=== PATIENT | female | born 1955 | race Caucasian/White ===

== ENCOUNTER → 2016-03-31 | Outpatient (CLI) | payer BC ==
--- NOTE | 2016-04-01 06:48 | MM ---
Reason for exam: screening (asymptomatic). Last mammogram was performed 1 year ago. History: Patient is postmenopausal. Taking estrogen for 13 years beginning at age 48. Taking progesterone for 13 years beginning at age 48. Physical Findings: A clinical breast exam by your physician is recommended on an annual basis and results should be correlated with mammographic findings. MG 3D Screening Mammo W/Cad Bilateral CC and MLO view(s) were taken. Prior study comparison: March 19, 2015, bilateral MG 3d screening mammo w/cad. February 10, 2014, bilateral MG diagnostic mammo w CAD TARAN. November 18, 2011, CAD bilateral diagnostic mammogram. The breast tissue is heterogeneously dense. This may lower the sensitivity of mammography. Possible architectural distortion superior left breast at a middle depth on tomosynthesis images. ASSESSMENT: Incomplete: need additional imaging evaluation, BI-RAD 0 RECOMMENDATION: Special view mammogram of the left breast. If lesion persists on supplemental views, image directed ultrasound is recommended. [facility] will attempt to contact patient to return for supplemental views and ultrasound if indicated.
== END | disposition home or self-care (01) ==
LOC: RADMAMWWP 15:22
PROVIDERS: ATTEND Obstetrics & Gynecology
DX: Z12.31 Encounter for screening mammogram for malignant neoplasm of breast (principal)
CPT/HCPCS: 77063; G0202

== ENCOUNTER → 2016-04-08 | Outpatient (CLI) | payer BC ==
--- NOTE | 2016-04-09 11:32 | MM ---
Reason for exam: additional evaluation requested from abnormal screening. Last mammogram was performed less than 1 month ago. History: Patient is postmenopausal. Taking estrogen for 13 years beginning at age 48. Taking progesterone for 13 years beginning at age 48. Physical Findings: Nurse did not find any significant physical abnormalities on exam. MG 3D Work Up W/Cad LT CC and MLO view(s) were taken of the left breast. Prior study comparison: March 31, 2016, bilateral MG 3d screening mammo w/cad. March 29, 2015, right breast US breast workup limited RT. March 19, 2015, bilateral MG 3d screening mammo w/cad. The breast tissue is heterogeneously dense. This may lower the sensitivity of mammography. An area of architectural distortion persists at a middle depth 2-3 o'clock seen on spot MLO and true lateral view. These results were verbally communicated with the patient and result sheet given to the patient on 04/08/16. ASSESSMENT: Incomplete: need additional imaging evaluation, BI-RAD 0 RECOMMENDATION: Ultrasound of the left breast.
--- NOTE | 2016-04-09 11:38 | USB ---
Reason for exam: additional evaluation requested from abnormal screening. History: Patient is postmenopausal. Taking estrogen for 13 years beginning at age 48. Taking progesterone for 13 years beginning at age 48. US Breast Workup LT Left breast ultrasound demonstrates a 0.79 x 0.77 x 0.87cm solid lesion at 2 o'clock and a 0.50 x 0.48 x 0.63cm solid lesion at 2 o'clock, these are hypoechoic, irregular and suspicious, ductal ectasia at the nipple, a 0.25 x 0.23 x 0.34cm cystic lesion at 2:30, a 0.37 x 0.38 x 0.18cm lesion too small to characterize at 5 o'clock, likely cyst and a 0.31 x 0.20 x 0.2cm lesion too small to characterize at 8 o'clock. These results were verbally communicated with the patient and result sheet given to the patient on 04/08/16. ASSESSMENT: Suspicious, BI-RAD 4 RECOMMENDATION: Surgical consultation and ultrasound core biopsy of the left breast. Called Dr. De La Cruz with mammographic findings and has scheduled an appointment for the patient for 04/29/16 at 8:[address] Trinidad. Biopsy scheduled for 04/21/16 at 12:20. PRELIMINARY REPORT CALLED AND FAXED TO DR. TRINIDAD ON 04/09/16 AT 300/TP.
== END | disposition home or self-care (01) ==
LOC: RADMAMWWP 15:28
PROVIDERS: ATTEND Obstetrics & Gynecology
DX: R92.8 Other abnormal and inconclusive findings on diagnostic imaging of breast (principal); R92.2 Inconclusive mammogram
CPT/HCPCS: 76641; G0206; G0279

== ENCOUNTER → 2016-04-15 | Day surgery (SDC) | payer BC ==
[~2016-04-15] MED LIST: ALPRAZolam 0.25 MG TAB ONE; BACITRACIN OINT 1 EACH PACKET TOPICAL ONE; LIDOCAINE 1% INJ 10MG/ML (20 ML MDV) ONE; LIDOCAINE 1%-EPI 1:100,000 20 ML VIAL ONE; SODIUM BICARB 4% 5 ML VIAL (0.48 MEQ/ML) ONE
--- NOTE | 2016-04-15 14:01 | USB ---
EXAMINATION TYPE: US biopsy breast VAD LT, MG diagnostic mammo LT wo CAD DATE OF EXAM: 04/15/2016 1:41 PM CLINICAL HISTORY: R92.8 ABN MAMMO. Abnormal mammogram and ultrasound TECHNIQUE: Ultrasound guided core biopsy of left breast. COMPARISON: Prior left breast mammogram and ultrasound April 08, 2016 and older studies. FINDINGS: The procedure of ultrasound guided core biopsy was explained to the patient. Benefits, alternatives, and risks were discussed. An informed consent was then obtained. The patient was placed in supine positioning for imaging and for the procedure. Preprocedure imaging showed more vague heterogeneous hypoechoic area 2:00 position left breast versus more regular slightly shadowing lesion seen prior. The overlying skin was prepped and draped in usual sterile fashion. Lidocaine buffered with bicarbonate was used as anesthetic into the skin. Lidocaine with epinephrine is used as anesthetic into the deeper tissue up to area of concern in the left breast. Under ultrasound guidance, a 12-gauge vacuum assisted biopsy gun device was used to obtain 4 core samples. Last 2 were fragmented. Following this, a biopsy clip was left in lesion. The patient tolerated the procedure well without any immediate complication. The patient was kept in the radiology department for short stay after the procedure and then discharged home in stable condition. Postprocedure mammogram shows successful deployment of clip upper outer aspect near area of mammogram concern. IMPRESSION: Successful, uncomplicated ultrasound guided core biopsy of area of concern in the left breast, full pathology results to follow. Intermediate index of suspicion noted at time of procedure. Pathology Results: Malignant BREAST, LEFT, ULTRASOUND GUIDED CORE BIOPSY: INVASIVE CARCINOMA PENDING IMMUNOHISTOCHEMICAL STAINS. 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 Recommendation Surgical consult of the left breast. NAED
== END ==
LOC: RADUSWWP 11:54
PROVIDERS: ATTEND Surgery
DX: D05.12 Intraductal carcinoma in situ of left breast (principal); R92.8 Other abnormal and inconclusive findings on diagnostic imaging of breast; Z88.0 Allergy status to penicillin
CPT/HCPCS: 88305; 88342; 88341; 19083; G0206; A4648; J2001

== ENCOUNTER → 2016-05-13 | Outpatient (CLI) | payer BC ==
--- NOTE | 2016-05-13 08:54 | CT ---
EXAMINATION TYPE: CT ChestAbdPelvis w con DATE OF EXAM: 05/13/2016 7:59 AM COMPARISON: NONE HISTORY: 61 year-old female breast cancer with mets TECHNIQUE: Contiguous axial scanning of the chest, abdomen, and pelvis performed with IV Contrast, pa tient injected with 100 mL of Omnipaque 300. Delayed images through the kidneys were obtained. [place] l/sagittal reconstructions performed. CT DLP: 1491 mGycm Automated exposure control for dose reduction was used. FINDINGS: CHEST: The heart is normal size without pericardial effusion. Aorta is normal caliber with conventional arch vessel branching anatomy. Scattered calcified nonenlarged mediastinal and left hilar lymph nodes are present, compatible with p rior granulomatous disease. Mild subpleural interstitial scarring is present along the posterior upper lobes. No consolidation or pleural effusion.. There are postoperative changes involving the left breast with a large postoperative fluid collection measuring 6.7 cm in the upper outer quadrant with adjacent surgical clips. Some nondependent air is present within the fluid collection. Additional 3.7 cm postoperative fluid collection in the left axi lla with adjacent surgical clip. Asymmetric skin thickening of the left breast. ABDOMEN: No focal liver lesion or biliary ductal dilatation. Portal venous system is patent. Gallbladder, adrenal glands, kidneys, spleen, and pancreas appear within normal limits. No dilated small bowel, free fluid, or free air. Normal appendix. Oral contrast has progressed to the lower descending colon. There is mild stool with out pericolonic inflammatory change. No mesenteric or retroperitoneal lymphadenopathy. PELVIS: Bladder is urine distended. Uterus and ovaries are visualized. No abnormal fluid collection in the pe lvis or pelvic lymphadenopathy seen. BONES: Mild degenerative changes at the right hip no osseous destructive process seen. Mild degenerative dis c disease midthoracic spine. IMPRESSION: 1. POSTOPERATIVE/POSTTREATMENT CHANGES INVOLVING THE LEFT BREAST WITH A 6.7 CM UPPER OUTER QUADRANT F LUID COLLECTION LIKELY POSTOPERATIVE SEROMA. THERE IS SOME AIR WITHIN THE FLUID COLLECTION PROBABLY R EFLECTING RELATIVELY RECENT SURGERY. 2. ADDITIONAL 3.7 CM PROBABLE POSTOPERATIVE SEROMA IN THE LEFT AXILLA RELATING TO AXILLARY NODE DISSE CTION. 3. NO SPECIFIC FINDINGS OF METASTATIC DISEASE TO THE CHEST, ABDOMEN, OR PELVIS.
--- NOTE | 2016-05-13 14:04 | NM ---
EXAMINATION TYPE: NM bone scan whole body DATE OF EXAM: 05/13/2016 1:50 PM COMPARISON: CT scan 05/13/2016 HISTORY: Breast cancer Delayed whole-body scanning was performed following the injection of 27 mCi Tc 99m MDP. Images acqui red 5.5 hours post injection. Bilateral oblique views of the thorax and lumbar spine also submitted. FINDINGS: Abnormal uptake involving the shoulders likely post arthritic. There is abnormal uptake involving the cervical spine on the right which is nonspecific. Abnormal uptake involving the right sternum and sternoclavicular joint demonstrates no corresponding CT abnormality and is nonspecific. Abnormal uptake involving the feet likely degenerative or arthritic. Faint abnormal uptake at L4-5 likely degenerative. IMPRESSION: 1. Abnormal uptake involving the sternum and sternoclavicular joint demonstrates no corresponding abn ormality by CAT scan. Finding nonspecific. No definite destructive change. 2. Nonspecific uptake involving the mid right cervical spine could be correlated with x-ray.
== END | disposition home or self-care (01) ==
LOC: RADCTMAIN 07:19
PROVIDERS: ATTEND Surgery
DX: Z08 Encounter for follow-up examination after completed treatment for malignant neoplasm (principal); Z85.3 Personal history of malignant neoplasm of breast; Z98.890 Other specified postprocedural states
CPT/HCPCS: 71260; 74177; 78306; A9503; Q9967

== ENCOUNTER → 2016-05-23 | Outpatient (CLI) | payer BC ==
--- NOTE | 2016-05-24 09:15 | ECHOF ---
Referral Reason:C50.412 Breast CA,Z01.818 Pre-Chemo MEASUREMENTS -------- HEIGHT: 162.6 cm WEIGHT: 59.0 kg BP: 126/67 RVIDd: 2.7 cm (< 3.3) IVSd: 0.7 cm (0.6 - 1.1) LVIDd: 3.7 cm (3.9 - 5.3) LVPWd: 0.8 cm (0.6 - 1.1) IVSs: 1.2 cm LVIDs: 2.4 cm LVPWs: 1.4 cm LA Diam: 2.6 cm (2.7 - 3.8) LAESV Index (A-L): 11.90 ml/m Ao Diam: 2.8 cm (2.0 - 3.7) AV Cusp: 1.9 cm (1.5 - 2.6) MV EXCURSION: 13.796 mm (> 18.000) MV EF SLOPE: 24 mm/s (70 - 150) EPSS: 0.5 cm MV E Koffi: 0.76 m/s MV DecT: 293 ms MV A Okffi: 0.71 m/s MV E/A Ratio: 1.07 AR PHT: 2213 ms RAP: 5.00 mmHg RVSP: 22.84 mmHg FINDINGS -------- Sinus rhythm. This was a technically adequate study. The left ventricular size is normal. Left ventricular wall thickness is normal. Overall left ventricular systolic function is normal with, an EF between 55 - 60 %. The right ventricle is normal in size and function. Normal LA size by volume 22+/-6 ml/m2. The right atrium is normal in size. There is mild aortic valve sclerosis. There is mild aortic regurgitation. Mild mitral annular calcification present. The tricuspid valve appears structurally normal. Pulmonic valve appears structurally normal. The aortic root size is normal. Normal inferior vena cava with normal inspiratory collapse consistent with estimated right atrial pressure of 5 mmHg. The pericardium is normal. CONCLUSIONS -------- 1. Sinus rhythm. 2. There is mild aortic regurgitation. 3. Mild mitral annular calcification present. 4. The tricuspid valve appears structurally normal. 5. Pulmonic valve appears structurally normal. 6. The aortic root size is normal. 7. Normal inferior vena cava with normal inspiratory collapse consistent with estimated right atrial pressure of 5 mmHg. 8. The pericardium is normal. 9. This was a technically adequate study. 10. The left ventricular size is normal. 11. Left ventricular wall thickness is normal. 12. Overall left ventricular systolic function is normal with, an EF between 55 - 60 %. 13. The right ventricle is normal in size and function. 14. Normal LA size by volume 22+/-6 ml/m2. 15. The right atrium is normal in size. 16. There is mild aortic valve sclerosis. WOOL SHEARER: Elsie Rossi RDCS
== END | disposition home or self-care (01) ==
LOC: RADECHMAIN 13:58
PROVIDERS: ATTEND Internal Medicine Hematology & Oncology
DX: Z01.818 Encounter for other preprocedural examination (principal); C50.412 Malignant neoplasm of upper-outer quadrant of left female breast
CPT/HCPCS: 93306

== ENCOUNTER 2016-07-21 09:20 | Inpatient (IN) | payer BC ==
--- NOTE | 2016-07-21 09:41 | ED ---
General Adult HPI - General Chief complaint: Fever Stated complaint: Fever Time Seen by Provider: 07/21/16 09:31 Source: patient, RN notes reviewed Mode of arrival: wheelchair Limitations: no limitations - History of Present Illness Initial comments: Patient is a 61-year-old female presenting to the emergency Department with weakness. Onset of symptoms was Thursday. Symptoms worsened last night. Patient had temperature of 101 last night. Patient is on chemotherapy for stage III breast cancer. Last chemotherapy dose was 1 week ago. Patient did go to infusion center today however Dr. Kelsey had concerns for possible sepsis and recommended she come to the emergency department. Patient does admit to having a sore throat however states it is somewhat improved. Patient did receive some fluids prior to arrival. - Related Data Home Medications Medication Instructions Recorded Confirmed Dexamethasone [Dexamethasone] 4 - 8 mg PO DIRECTED 07/21/16 07/21/16 Escitalopram [Lexapro] 10 mg PO DAILY 07/21/16 07/21/16 Lidocaine/Prilocaine 1 applic TOPICAL DIRECTED 07/21/16 07/21/16 [Lidocaine-Prilocaine Cream] Allergies Allergy/AdvReac Type Severity Reaction Status Date / Time Penicillins Allergy Rash/Hives Verified 07/21/16 10:30 Review of Systems ROS Statement: Those systems with pertinent positive or pertinent negative responses have been documented in the HPI. ROS Other: All systems not noted in ROS Statement are negative. Constitutional: Reports: fever Eyes: Denies: eye pain ENT: Reports: throat pain. Denies: ear pain Respiratory: Denies: dyspnea Cardiovascular: Denies: chest pain Endocrine: Reports: fatigue Gastrointestinal: Reports: abdominal pain (Chronic since starting chemotherapy) , nausea Genitourinary: Denies: urgency Musculoskeletal: Denies: back pain Skin: Denies: rash Neurological: Denies: headache Past Medical History Past Medical History: Cancer Additional Past Medical History / Comment(s): breast cancer History of Any Multi-Drug Resistant Organisms: None Reported Past Surgical History: Section, Orthopedic Surgery Additional Past Surgical History / Comment(s): lumpectomy left breast, lymph node removal Past Psychological History: No Psychological Hx Reported Smoking Status: Never smoker Past Alcohol Use History: None Reported Past Drug Use History: None Reported General Exam Limitations: no limitations General appearance: alert, in no apparent distress Head exam: Present: atraumatic Eye exam: Present: normal appearance, PERRL ENT exam: Present: normal oropharynx Neck exam: Present: normal inspection. Absent: tenderness, meningismus Respiratory exam: Present: normal lung sounds bilaterally Cardiovascular Exam: Present: regular rate, normal rhythm GI/Abdominal exam: Present: soft. Absent: distended, tenderness, guarding, rebound, rigid Extremities exam: Present: normal inspection. Absent: pedal edema, calf tenderness Back exam: Present: normal inspection Neurological exam: Present: alert Psychiatric exam: Present: normal affect, normal mood Skin exam: Present: normal color Course Vital Signs 07/21/16 07/21/16 07/21/16 09:22 09:53 10:57 Temperature 98.4 F 100.5 F H Pulse Rate 74 72 67 Respiratory 20 18 18 Rate Blood Pressure 85/52 89/51 104/57 O2 Sat by Pulse 99 98 100 Oximetry 07/21/16 12:12 Temperature 99.3 F Pulse Rate 68 Respiratory 20 Rate Blood Pressure 97/56 O2 Sat by Pulse 98 Oximetry - Reevaluation(s) Reevaluation #1: 07/21/16 09:59 Patient did take Tylenol earlier. EKG Findings - EKG Comments: EKG Findings:: Normal sinus rhythm 76. IN 114. QRS 78. QT 382. QTC 429. Normal axis. Normal QRS. Normal ST-T. Medical Decision Making - Medical Decision Making Patient reevaluated and does feel much better. Patient updated on results and plan. Case again discussed with Dr. Kelsey who would like patient admitted with cefepime and vancomycin. Case also discussed with Dr. Mendoza, who will admit for Dr. Waldron. She does request consult for Dr. Locke. Dr. Owens was also notified. Patient states she believes she received Neulasta on Thursday. - Lab Data Result diagrams: 07/21/16 09:44 07/21/16 09:44 Lab Results 07/21/16 07/21/16 07/21/16 Range/Units 09:44 09:44 09:44 WBC 0.4 L* (3.8-10.6) k/uL RBC 3.38 L (3.80-5.40) m/uL Hgb 10.4 L (11.4-16.0) gm/dL Hct 30.4 L (34.0-46.0) % MCV 89.7 (80.0-100.0) fL MCH 30.8 (25.0-35.0) pg MCHC 34.3 (31.0-37.0) g/dL RDW 15.2 (11.5-15.5) % Plt Count 69 L (150-450) k/uL Differential Comment P Poikilocytosis (manual Present Anisocytosis (manual) Present PT (9.0-12.0) sec INR (<1.1) APTT (22.0-30.0) sec Sodium 134 L (137-145) mmol/L Potassium 4.0 (3.5-5.1) mmol/L Chloride 104 (98-107) mmol/L Carbon Dioxide 22 (22-30) mmol/L Anion Gap 8 mmol/L BUN 14 (7-17) mg/dL Creatinine 0.66 (0.52-1.04) mg/dL Est GFR (MDRD) Af Amer >60 (>60 ml/min/1.73 sqM) Est GFR (MDRD) Non-Af >60 (>60 ml/min/1.73 sqM) Glucose 164 H (74-99) mg/dL Plasma Lactic Acid Hiram 1.5 (0.7-2.0) mmol/L Calcium 8.3 L (8.4-10.2) mg/dL Total Bilirubin 0.7 (0.2-1.3) mg/dL AST 12 L (14-36) U/L ALT 19 (9-52) U/L Alkaline Phosphatase 64 (38-126) U/L Total Protein 5.7 L (6.3-8.2) g/dL Albumin 3.1 L (3.5-5.0) g/dL Urine Color Urine Appearance (Clear) Urine pH (5.0-8.0) Ur Specific Jerome (1.001-1.035) Urine Protein (Negative) Urine Glucose (UA) (Negative) Urine Ketones (Negative) Urine Blood (Negative) Urine Nitrite (Negative) Urine Bilirubin (Negative) Urine Urobilinogen (<2.0) mg/dL Ur Leukocyte Esterase (Negative) Group A Strep Rapid (Negative) 07/21/16 07/21/16 07/21/16 Range/Units 09:44 09:55 11:02 WBC (3.8-10.6) k/uL RBC (3.80-5.40) m/uL Hgb (11.4-16.0) gm/dL Hct (34.0-46.0) % MCV (80.0-100.0) fL MCH (25.0-35.0) pg MCHC (31.0-37.0) g/dL RDW (11.5-15.5) % Plt Count (150-450) k/uL Differential Comment Poikilocytosis (manual Anisocytosis (manual) PT 10.7 (9.0-12.0) sec INR 1.1 (<1.1) APTT 22.2 (22.0-30.0) sec Sodium (137-145) mmol/L Potassium (3.5-5.1) mmol/L Chloride (98-107) mmol/L Carbon Dioxide (22-30) mmol/L Anion Gap mmol/L BUN (7-17) mg/dL Creatinine (0.52-1.04) mg/dL Est GFR (MDRD) Af Amer (>60 ml/min/1.73 sqM) Est GFR (MDRD) Non-Af (>60 ml/min/1.73 sqM) Glucose (74-99) mg/dL Plasma Lactic Acid Hiram (0.7-2.0) mmol/L Calcium (8.4-10.2) mg/dL Total Bilirubin (0.2-1.3) mg/dL AST (14-36) U/L ALT (9-52) U/L Alkaline Phosphatase (38-126) U/L Total Protein (6.3-8.2) g/dL Albumin (3.5-5.0) g/dL Urine Color Yellow Urine Appearance Clear (Clear) Urine pH 7.5 (5.0-8.0) Ur Specific Jerome 1.016 (1.001-1.035) Urine Protein Trace H (Negative) Urine Glucose (UA) Negative (Negative) Urine Ketones Negative (Negative) Urine Blood Negative (Negative) Urine Nitrite Negative (Negative) Urine Bilirubin Negative (Negative) Urine Urobilinogen 2.0 (<2.0) mg/dL Ur Leukocyte Esterase Negative (Negative) Group A Strep Rapid Negative (Negative) - Radiology Data Radiology results: image reviewed (Chest x-ray shows no acute process) Disposition Clinical Impression: Febrile neutropenia Disposition: ADMITTED IP TO THIS HOSP Referrals: Chet Waldron MD [Primary Care Provider] - 1-2 days Decision Time: 13:03
[2016-07-21] MEDS: SODIUM CHLORIDE 0.9% 500 ML IV SCH (09:52)
[2016-07-21] MEDS ORDERED: IBUPROFEN 400 MG TAB PO STA (09:57)
[2016-07-21 10:03] LABS: Aty Lym Flag Moderate; CH 30.7; CHCM 34.4; HCT 30.4 % (34.0-46.0); HDW 2.21; HGB 10.4 gm/dL (11.4-16.0); MCH 30.8 pg (25.0-35.0); MCHC 34.3 g/dL (31.0-37.0); MCV 89.7 fL (80.0-100.0); Mean Platelet Volume 7.6; RBC 3.38 m/uL (3.80-5.40); RDW 15.2 % (11.5-15.5); WBC (Perox) 0.41
[2016-07-21 10:06] LABS: Partial Thromboplastin Time 22.2 sec (22.0-30.0)
[2016-07-21 10:10] LABS: INR 1.1 (<1.1); Prothrombin Time 10.7 sec (9.0-12.0); WBC 0.4 k/uL (3.8-10.6)
[2016-07-21 10:14] LABS: ALT 19 U/L (9-52); AST 12 U/L (14-36); Alkaline Phosphatase 64 U/L (38-126); Anion Gap 8 mmol/L; Blood Urea Nitrogen 14 mg/dL (7-17); Calcium 8.3 mg/dL (8.4-10.2); Carbon Dioxide 22 mmol/L (22-30); Chloride 104 mmol/L (98-107); Glucose 164 mg/dL (74-99); Non-African American GFR(MDRD) >60 (>60 ml/min/1.73 sqM); Sodium 134 mmol/L (137-145); Total Bilirubin 0.7 mg/dL (0.2-1.3); Total Protein 5.7 g/dL (6.3-8.2)
--- NOTE | 2016-07-21 10:14 | XR ---
EXAMINATION TYPE: XR chest 2V DATE OF EXAM: 07/21/2016 COMPARISON: Prior chest CT for 05/13/2016 HISTORY: Fever, breast cancer, low white blood cell count TECHNIQUE: Frontal and lateral views of the chest are obtained. FINDINGS: Right-sided Port-A-Cath is present, distal tip of the catheter is near the cavoatrial junc tion level. Prominent lung volumes are again seen. Postop change noted to the left breast. No pneumot horax or pleural effusion. The heart is small. No evident airspace disease. Pulmonary vascularity and evi within normal limits. Calcified mediastinal nodes and hilar nodes are present. IMPRESSION: No acute abnormalities evident.
[2016-07-21] MEDS ORDERED: SODIUM CHLORIDE 0.9% 250 ML IV STA (10:19)
[2016-07-21] MEDS ORDERED: SODIUM CHLORIDE 0.9% 500 ML IV STA (10:19)
[2016-07-21] MEDS ORDERED: CEFEPIME 2 GM in SODIUM CHLORIDE 0.9% 50 ML IVPB STA (10:26)
[2016-07-21 11:09] LABS: Add Differential Manual Differential
[2016-07-21 11:25] LABS: Appearance,Urine Clear (Clear); Bilirubin,Urine Negative (Negative); Glucose,Urine (UA) Negative (Negative); Ketones,Urine Negative (Negative); Leukocyte Esterase,Urine Negative (Negative); Nitrite,Urine Negative (Negative); PH, Urine 7.5 (5.0-8.0); Protein,Urine Trace (Negative); Specific Gravity,Urine 1.016 (1.001-1.035); UA Billing (MACRO vs. MICRO) CHEM
[2016-07-21] MEDS ORDERED: IV VANCOMYCIN PER PHARMACY 1 EACH MISC MISCELLANE PRN (11:44)
[2016-07-21] MEDS ORDERED: VANCOMYCIN 1,250 MG in SODIUM CHLORIDE 0.9% 250 ML IVPB ONE (12:45)
[2016-07-21] MEDS ORDERED: NALOXONE 0.4 MG/ML 1 ML VIAL IV PRN (13:04)
--- NOTE | 2016-07-21 15:58 | P.HPIM ---
History of Present Illness H&P Date: 07/21/16 Chief Complaint: Fever and neutropenia 61-year-old pleasant lady patient of Dr. Correa, she has underlying history of breast cancer diagnosed in April 2016 stage III left side, required lumpectomy of the left breast Dr kwok at [facility] followed locally by Dr. Casas for chemotherapy,. Patient received a completed 3 series of chemotherapy on a biweekly schedule, she still has 1 more session off the biweekly series and subsequent to that an 12 week program for weekly chemotherapy, chemotherapy agents currently are not known by the patient. Patient was seen by Dr. Casas today after an onset of fever, she has sore throat and some local mucositis in the right side of her cheek, she had been requested to emergency room for a WBC 0.4, differential currently pending and was subsequently admitted secondary to neutropenic fever, patient was started on cefepime and vancomycin and consult were made with Dr. Locke infectious disease Dr. Casas from oncology. Emergency room group a strep negative screen, urinalysis negative,, chest x-ray is unremarkable for any acute abnormalities, patient denies any nausea vomiting dysuria no diarrhea no rashes no recent foreign travels no recent history or remote history of drug resistance organism Review of Systems Constitutional: Reports anorexia, Reports malaise, Reports poor appetite, Reports weight loss, Denies as per HPI, Denies chills, Denies chronic headaches , Denies chronic pain, Denies daytime sleepiness, Denies fatigue, Denies fever, Denies lethargy, Denies night sweats, Denies sweats, Denies weakness, Denies weight gain Ears, nose, mouth and throat: Reports as per HPI, Denies ant. neck pain, Denies bleeding gums, Denies dental pain, Denies dysphagia, Denies epistaxis, Denies headache, Denies hoarseness, Denies mouth pain, Denies nasal congestion, Denies nasal discharge, Denies neck fullness/pressure, Denies neck lump, Denies nose pain, Denies odynophagia, Denies post-nasal drip, Denies sinus pain, Denies sinus pressure, Denies swelling in mouth, Denies swelling in throat, Denies sore throat, Denies vertigo, Denies voice changes Cardiovascular: Reports as per HPI, Denies chest pain, Denies claudication, Denies decreased exercise tolerance, Denies dyspnea on exertion, Denies edema, Denies high blood pressure, Denies irregular heart beat, Denies leg edema, Denies lightheadedness, Denies orthopnea, Denies palpitations, Denies paroxysmal nocturnal dyspnea, Denies phlebitis, Denies rapid heart beat, Denies shortness of breath, Denies syncope Respiratory: Reports as per HPI, Denies congestion, Denies cough, Denies cough with sputum, Denies dyspnea, Denies excessive sputum, Denies hemoptysis, Denies home oxygen, Denies pain, Denies pain on inspiration, Denies pleurisy, Denies respiratory infections, Denies sleep apnea, Denies snoring, Denies wheezing Gastrointestinal: Reports as per HPI, Denies abdominal pain, Denies belching, Denies bloating, Denies BRBPR, Denies change in bowel habits, Denies coffee ground emesis, Denies constipation, Denies diarrhea, Denies dyspepsia, Denies early satiety, Denies excessive gas, Denies heartburn, Denies hematemesis, Denies hematochezia, Denies indigestion, Denies jaundice, Denies lactose intolerance, Denies loss of appetite, Denies melena, Denies nausea, Denies vomiting Genitourinary: Reports as per HPI, Denies abnormal vaginal bleeding, Denies decreased libido, Denies difficulty conceiving, Denies difficulty voiding, Denies dysmenorrhea, Denies dyspareunia, Denies dysuria, Denies flank pain, Denies genital sores, Denies hematuria, Denies hot flashes, Denies incomplete emptying, Denies kidney stones, Denies menorrhagia, Denies mixed incontinence, Denies nocturia, Denies pelvic pain, Denies post void dribbling, Denies , Denies prolapse symptoms, Denies stress incontinence, Denies urge incontinence , Denies urgency, Denies urinary frequency, Denies vaginal discharge, Denies vaginal dryness, Denies vaginal itching, Denies vaginal odor Menstruation: Reports as per HPI, Denies amenorrhea, Denies amenorrhea on BC, Denies currently menstrual, Denies cycle < 21 days, Denies cycle > 35 days, Denies cycle variable, Denies menses 1-7 days, Denies menses 8 or > days, Denies menses variable, Denies period heavy, Denies period light, Denies period normal, Denies period spotting, Denies post hysterectomy, Denies postmenopausal , Denies premenarcheal Musculoskeletal: Reports as per HPI, Denies arm numbness/tingling, Denies atrophy, Denies fractures, Denies frequent falls, Denies gait dysfunction, Denies hot joints, Denies leg numbness/tingling, Denies limitation of motion, Denies loss of height, Denies low back pain, Denies morning stiffness, Denies muscle cramps, Denies muscle weakness, Denies myalgias, Denies neck pain, Denies neck stiffness, Denies prior amputations, Denies redness of joints, Denies shooting arm pain, Denies shooting leg pain Integumentary: Reports as per HPI, Denies acne, Denies boils, Denies brittle nails, Denies change in hair/nails, Denies color changes, Denies darkening of skin, Denies depigmentation, Denies dryness, Denies foot/leg ulcers, Denies growths, Denies hirsutism, Denies lesions, Denies onychomycosis, Denies pruritus , Denies rash, Denies sores, Denies striae, Denies unusual bruising, Denies wounds Neurological: Reports as per HPI, Denies aphasia, Denies ataxia, Denies balance difficulties, Denies burning pain, Denies change in mentation, Denies change in smell/taste, Denies change in speech, Denies confusion, Denies convulsions, Denies double vision, Denies gait dysfunction, Denies head injury, Denies headaches, Denies hearing difficulties, Denies lack of coordination, Denies loss of vision, Denies memory loss, Denies migraines, Denies motor disturbance, Denies numbness, Denies paralysis, Denies paresthesias, Denies seizures, Denies sensory deficit, Denies spasticity, Denies syncope, Denies tic, Denies tingling , Denies transient paralysis, Denies tremors, Denies vertigo, Denies weakness, Denies visual changes Psychiatric: Reports as per HPI, Denies anhedonia, Denies anxiety, Denies anxiety attacks, Denies change in appetite, Denies change in libido, Denies change in sleep habits, Denies confusion, Denies depression, Denies difficulty concentrating, Denies disorientation, Denies hallucinations, Denies hopelessness , Denies hypersomnia, Denies insomnia, Denies irritability, Denies memory loss, Denies mood swings, Denies paranoia, Denies sadness/tearfulness, Denies sleep disturbances, Denies suicidal ideation Endocrine: Reports as per HPI, Denies cold intolerance, Denies deepening of the voice, Denies excessive sweating, Denies excessive thirst, Denies fatigue, Denies flushing, Denies heat intolerance, Denies high blood sugars, Denies increase in ring/shoe/hat size, Denies low blood sugars, Denies nocturia, Denies palpitations, Denies polydipsia, Denies polyphagia, Denies polyuria, Denies proptosis, Denies recent glucocorticoid use, Denies thyroid mass, Denies weight change Hematologic/Lymphatic: Reports as per HPI, Denies easy bleeding, Denies easy bruising, Denies lymphadenopathy, Denies lymphedema, Denies thrombophilia Allergic/Immunologic: Reports as per HPI, Denies allergic rhinitis, Denies anaphylaxis, Denies angioedema, Denies gluten intolerance, Denies persistent infections, Denies seasonal allergies, Denies urticaria, Denies wheezing Past Medical History Past Medical History: Cancer Additional Past Medical History / Comment(s): breast cancer History of Any Multi-Drug Resistant Organisms: None Reported Past Surgical History: Section, Orthopedic Surgery Additional Past Surgical History / Comment(s): lumpectomy left breast, lymph node removal Past Anesthesia/Blood Transfusion Reactions: Postoperative Nausea & Vomiting ( PONV) Past Psychological History: Depression Additional Psychological History / Comment(s): feels well maintained on meds. pt lives in [address] [place] home that has 6 proch steps and 12 steps to 2nd floor.pt is independant lives with her spouse. no pets.pt is a high school counselor.no outside services recieved. no medical equipment. Smoking Status: Never smoker Past Alcohol Use History: None Reported Past Drug Use History: None Reported - Past Family History Father Family Medical History: COPD, Myocardial Infarction ([place]) Mother Family Medical History: Osteoarthritis (OA) (Osteoporosis) Additional Family Medical History / Comment(s): age 90 healthy has osteoporosis Brother(s) Family Medical History: No Reported History Sister(s) Family Medical History: No Reported History Daughter(s) Family Medical History: No Reported History Son(s) Family Medical History: No Reported History Medications and Allergies Home Medications Medication Instructions Recorded Confirmed Type Dexamethasone [Dexamethasone] 4 - 8 mg PO DIRECTED 07/21/16 07/21/16 History Escitalopram [Lexapro] 10 mg PO DAILY 07/21/16 07/21/16 History Lidocaine/Prilocaine 1 applic TOPICAL DIRECTED 07/21/16 07/21/16 History [Lidocaine-Prilocaine Cream] Allergies Allergy/AdvReac Type Severity Reaction Status Date / Time Penicillins Allergy Rash/Hives Verified 07/21/16 10:30 Physical Exam Vitals: Vital Signs Temp Pulse Resp BP Pulse Ox 07/21/16 15:35 70 18 96/50 96 07/21/16 13:51 99.2 F 67 18 94/52 98 07/21/16 13:29 98.7 F 70 18 88/53 98 07/21/16 12:12 99.3 F 68 20 97/56 98 07/21/16 10:57 67 18 104/57 100 07/21/16 09:53 100.5 F H 72 18 89/51 98 07/21/16 09:22 98.4 F 74 20 85/52 99 Intake and Output 07/21/16 07/21/16 07/21/16 06:59 14:59 22:59 Other: Weight 58.06 kg Patient Weight 07/22/16 06:59 Weight 58.06 kg - Constitutional General appearance: average body habitus, cooperative, no acute distress - EENT Eyes: anicteric sclerae, EOMI, PERRLA, dentition normal ENT: hearing grossly normal, NA/AT, normal oropharynx - Neck Neck: no lymphadenopathy, normal ROM, no other, no rigidity, no stridor, no thyromegaly - Respiratory Respiratory: bilateral: CTA, negative: diminished, dullness, rales, rhonchi, wheezing - Cardiovascular Rhythm: regular Heart sounds: normal: S1, S2 Abnormal Heart Sounds: no systolic murmur, no diastolic murmur, no rub, no S3 Gallop, no S4 Gallop, no click, no other - Gastrointestinal General gastrointestinal: organomegaly, soft - Integumentary Integumentary: decreased turgor, normal, normal turgor - Neurologic Neurologic: CNII-XII intact - Musculoskeletal Musculoskeletal: gait normal, strength equal bilaterally - Psychiatric Psychiatric: A&O x's 3, appropriate affect, intact judgment & insight Results CBC & Chem 7: 07/21/16 09:44 07/21/16 09:44 Labs: Abnormal Lab Results - Last 24 Hours (Table) 07/21/16 07/21/16 07/21/16 Range/Units 09:44 09:44 11:02 WBC 0.4 L* (3.8-10.6) k/uL RBC 3.38 L (3.80-5.40) m/uL Hgb 10.4 L (11.4-16.0) gm/dL Hct 30.4 L (34.0-46.0) % Plt Count 69 L (150-450) k/uL Sodium 134 L (137-145) mmol/L Glucose 164 H (74-99) mg/dL Calcium 8.3 L (8.4-10.2) mg/dL AST 12 L (14-36) U/L Total Protein 5.7 L (6.3-8.2) g/dL Albumin 3.1 L (3.5-5.0) g/dL Urine Protein Trace H (Negative) Microbiology - Last 24 Hours (Table) 07/21/16 11:02 Urine Culture - Preliminary Urine,Voided Laboratory Results WBC 0.4 k/uL (3.8-10.6) L* 07/21/16 09:44 RBC 3.38 m/uL (3.80-5.40) L 07/21/16 09:44 Hgb 10.4 gm/dL (11.4-16.0) L 07/21/16 09:44 Hct 30.4 % (34.0-46.0) L 07/21/16 09:44 MCV 89.7 fL (80.0-100.0) 07/21/16 09:44 MCH 30.8 pg (25.0-35.0) 07/21/16 09:44 MCHC 34.3 g/dL (31.0-37.0) 07/21/16 09:44 RDW 15.2 % (11.5-15.5) 07/21/16 09:44 Plt Count 69 k/uL (150-450) L 07/21/16 09:44 Differential Comment P 07/21/16 09:44 Poikilocytosis (manual Present 07/21/16 09:44 Anisocytosis (manual) Present 07/21/16 09:44 PT 10.7 sec (9.0-12.0) 07/21/16 09:44 INR 1.1 (<1.1) 07/21/16 09:44 APTT 22.2 sec (22.0-30.0) 07/21/16 09:44 Sodium 134 mmol/L (137-145) L 07/21/16 09:44 Potassium 4.0 mmol/L (3.5-5.1) 07/21/16 09:44 Chloride 104 mmol/L (98-107) 07/21/16 09:44 Carbon Dioxide 22 mmol/L (22-30) 07/21/16 09:44 Anion Gap 8 mmol/L 07/21/16 09:44 BUN 14 mg/dL (7-17) 07/21/16 09:44 Creatinine 0.66 mg/dL (0.52-1.04) 07/21/16 09:44 Est GFR (MDRD) Af Amer >60 (>60 ml/min/1.73 sqM) 07/21/16 09:44 Est GFR (MDRD) Non-Af >60 (>60 ml/min/1.73 sqM) 07/21/16 09:44 Glucose 164 mg/dL (74-99) H 07/21/16 09:44 Plasma Lactic Acid Hiram 1.5 mmol/L (0.7-2.0) 07/21/16 09:44 Calcium 8.3 mg/dL (8.4-10.2) L 07/21/16 09:44 Total Bilirubin 0.7 mg/dL (0.2-1.3) 07/21/16 09:44 AST 12 U/L (14-36) L 07/21/16 09:44 ALT 19 U/L (9-52) 07/21/16 09:44 Alkaline Phosphatase 64 U/L (38-126) 07/21/16 09:44 Total Protein 5.7 g/dL (6.3-8.2) L 07/21/16 09:44 Albumin 3.1 g/dL (3.5-5.0) L 07/21/16 09:44 Urine Color Yellow 07/21/16 11:02 Urine Appearance Clear (Clear) 07/21/16 11:02 Urine pH 7.5 (5.0-8.0) 07/21/16 11:02 Ur Specific Dunnigan 1.016 (1.001-1.035) 07/21/16 11:02 Urine Protein Trace (Negative) H 07/21/16 11:02 Urine Glucose (UA) Negative (Negative) 07/21/16 11:02 Urine Ketones Negative (Negative) 07/21/16 11:02 Urine Blood Negative (Negative) 07/21/16 11:02 Urine Nitrite Negative (Negative) 07/21/16 11:02 Urine Bilirubin Negative (Negative) 07/21/16 11:02 Urine Urobilinogen 2.0 mg/dL (<2.0) 07/21/16 11:02 Ur Leukocyte Esterase Negative (Negative) 07/21/16 11:02 Group A Strep Rapid Negative (Negative) 07/21/16 09:55 Thrombosis Risk Factor Assmnt - DVT/VTE Prophylaxis DVT/VTE Prophylaxis: Pharmacologic Prophylaxis ordered - Choose All That Apply Each Risk Factor Represents 2 Points: Age 61-74 years, Malignancy Thrombosis Risk Factor Assessment Total Risk Factor Score: 4 Thrombosis Risk Factor Assessment Level: Moderate Risk Assessment and Plan Plan: 1. Neutropenic fever undergoing chemotherapy for breast cancer, patient was started on cefepime, and vancomycin, blood cultures have been sent, consult were made with Dr. Locke and Dr. Casas, urinalysis negative, chest x-ray is unremarkable, Neupogen most likely would be started by oncology 2. Ongoing chemotherapy for breast cancer 3. Stage III breast cancer left side status post lumpectomy April 2016, follows closely by Dr. Casas 4. Depression on Lexapro 10 mg daily 5. Right mucosal shallow ulcerations, most likely secondary to localized mucositis, Davis's solution to be applied 6. GI prophylaxis bother was core of 4, Lovenox 40 mg daily, patient currently has a platelet count of 69 monitor platelets 7. GI prophylaxis with IV Protonix
[2016-07-21] MEDS ORDERED: LIDOCAINE-PRILOCAINE 2.5-2.5% CREAM 5 GM TUBE TOPICAL PRN (16:00)
[2016-07-21] MEDS: ACETAMINOPHEN TAB 325 MG TAB PO PRN (18:08)
[2016-07-21] MEDS: ESCITALOPRAM 10 MG TAB PO SCH (20:40)
[2016-07-21] MEDS: MAG HYDROX/AL HYDROX/SIMETH 30 ML, LIDOCAINE VISCOUS 30 ML, diphenhydrAMINE ELIXIR 75 M... PO SCH ×8 (20:42→20:52)
[2016-07-21] MEDS: CEFEPIME 2 GM in SODIUM CHLORIDE 0.9% 50 ML IVPB SCH (20:51)
[2016-07-21] MEDS: SODIUM CHLORIDE 0.9% 1,000 ML IV SCH ×2 (20:51→23:23)
[2016-07-21] MEDS: VANCOMYCIN 1,000 MG in SODIUM CHLORIDE 0.9% 250 ML IVPB SCH (23:24)
[2016-07-22] MEDS: CEFEPIME 2 GM in SODIUM CHLORIDE 0.9% 50 ML IVPB SCH ×3 (01:47→17:43)
[2016-07-22] MEDS: ACETAMINOPHEN TAB 325 MG TAB PO PRN ×2 (01:50→17:05)
[2016-07-22] MEDS: VANCOMYCIN 1,000 MG in SODIUM CHLORIDE 0.9% 250 ML IVPB SCH ×3 (06:13→22:14)
[2016-07-22 06:29] LABS: Aty Lym Flag Moderate; CH 30.1; HCT 27.5 % (34.0-46.0); HDW 2.15; MCH 29.9 pg (25.0-35.0); MCHC 32.7 g/dL (31.0-37.0); MCV 91.5 fL (80.0-100.0); Mean Platelet Volume 8.8; RBC 3.01 m/uL (3.80-5.40); WBC (Perox) 0.48
[2016-07-22 06:47] LABS: ALT 19 U/L (9-52); AST 11 U/L (14-36); Alkaline Phosphatase 66 U/L (38-126); Anion Gap 5 mmol/L; Blood Urea Nitrogen 9 mg/dL (7-17); Calcium 8.2 mg/dL (8.4-10.2); Carbon Dioxide 24 mmol/L (22-30); Chloride 109 mmol/L (98-107); Glucose 87 mg/dL (74-99); Non-African American GFR(MDRD) >60 (>60 ml/min/1.73 sqM); Sodium 138 mmol/L (137-145); Total Bilirubin 0.5 mg/dL (0.2-1.3); Total Protein 5.2 g/dL (6.3-8.2)
[2016-07-22 06:50] LABS: WBC 0.5 k/uL (3.8-10.6)
[2016-07-22 07:37] LABS: Add Differential Manual Differential; Manual Review Performed
[2016-07-22] MEDS: ESCITALOPRAM 10 MG TAB PO SCH (08:56)
[2016-07-22] MEDS: MAG HYDROX/AL HYDROX/SIMETH 30 ML, LIDOCAINE VISCOUS 30 ML, diphenhydrAMINE ELIXIR 75 M... PO SCH ×12 (08:58→23:11)
[2016-07-22] MEDS ORDERED: SODIUM CHLORIDE 0.9% 500 ML IV ONE (11:18)
--- NOTE | 2016-07-22 13:17 | P.PN ---
Subjective 61-year-old pleasant lady patient of Dr. Correa, she has underlying history of breast cancer diagnosed in April 2016 stage III left side, required lumpectomy of the left breast Dr kwok at [facility] followed locally by Dr. Casas for chemotherapy,. Patient received a completed 3 series of chemotherapy on a biweekly schedule, she still has 1 more session off the biweekly series and subsequent to that an 12 week program for weekly chemotherapy, chemotherapy agents currently are not known by the patient. Patient was seen by Dr. Casas today after an onset of fever, she has sore throat and some local mucositis in the right side of her cheek, she had been requested to emergency room for a WBC 0.4, differential currently pending and was subsequently admitted secondary to neutropenic fever, patient was started on cefepime and vancomycin and consult were made with Dr. Locke infectious disease Dr. Casas from oncology. Emergency room group a strep negative screen, urinalysis negative,, chest x-ray is unremarkable for any acute abnormalities, patient denies any nausea vomiting dysuria no diarrhea no rashes no recent foreign travels no recent history or remote history of drug resistance organism 07/22: White count is now 0.5 and platelet count is dropped to 48. Blood pressure remains on the low side and temperature max been 100.4. Fluid bolus of 500 mL given. Patient is asymptomatic and states her blood pressure usually runs on the lower side. She denies having any fever or chills. She has been ambulating in the hallway without lightheadedness or dizziness. Patient is continued on cefepime time and vancomycin. Consults with Dr. Owens and Dr. Locke appreciated. Patient is hoping to be discharged tomorrow but willing to stay until if necessary. Objective - Vital Signs Vital signs: Vital Signs Temp 98.1 F 07/22/16 07:00 Pulse 73 07/22/16 07:00 Resp 18 07/22/16 07:00 BP 92/57 07/22/16 07:00 Pulse Ox 96 07/22/16 07:00 Intake & Output 07/21/16 07/22/16 07/22/16 18:59 06:59 18:59 Intake Total 1275 Balance 1275 Weight 58.06 kg 61.5 kg Intake: IV 1275 Cefepime 2 gm In Sodium 100 Chloride 0.9% 50 ml @ 100 mls/hr IVPB Q8HR [facility] Rx# :[id number] Sodium Chloride 0.9% 1, 925 000 ml @ 125 mls/hr IV . Q8H [facility] Rx#:[id number] Vancomycin 1,000 mg In 250 Sodium Chloride 0.9% 250 ml @ 125 mls/hr IVPB Q8H [facility] Rx#:[id number] Other: Voiding Method Toilet Toilet - Exam General appearance: average body habitus, cooperative, no acute distress - EENT Eyes: anicteric sclerae, EOMI, PERRLA, dentition normal ENT: hearing grossly normal, NA/AT, normal oropharynx - Neck Neck: no lymphadenopathy, normal ROM, no other, no rigidity, no stridor, no thyromegaly - Respiratory Respiratory: bilateral: CTA, negative: diminished, dullness, rales, rhonchi, wheezing - Cardiovascular Rhythm: regular Heart sounds: normal: S1, S2 Abnormal Heart Sounds: no systolic murmur, no diastolic murmur, no rub, no S3 Gallop, no S4 Gallop, no click, no other - Gastrointestinal General gastrointestinal: organomegaly, soft - Integumentary Integumentary: decreased turgor, normal, normal turgor - Neurologic Neurologic: CNII-XII intact - Musculoskeletal Musculoskeletal: gait normal, strength equal bilaterally - Psychiatric Psychiatric: A&O x's 3, appropriate affect, intact judgment & insight - Labs CBC & Chem 7: 07/22/16 06:15 07/22/16 06:15 Labs: Abnormal Lab Results - Last 24 Hours (Table) 07/21/16 07/21/16 07/22/16 Range/Units 09:44 11:02 06:15 WBC 0.5 L* (3.8-10.6) k/uL RBC 3.01 L (3.80-5.40) m/uL Hgb 9.0 L (11.4-16.0) gm/dL Hct 27.5 L (34.0-46.0) % Plt Count 69 L 48 L* (150-450) k/uL Chloride (98-107) mmol/L Calcium (8.4-10.2) mg/dL AST (14-36) U/L Total Protein (6.3-8.2) g/dL Albumin (3.5-5.0) g/dL Urine Protein Trace H (Negative) 07/22/16 Range/Units 06:15 WBC (3.8-10.6) k/uL RBC (3.80-5.40) m/uL Hgb (11.4-16.0) gm/dL Hct (34.0-46.0) % Plt Count (150-450) k/uL Chloride 109 H (98-107) mmol/L Calcium 8.2 L (8.4-10.2) mg/dL AST 11 L (14-36) U/L Total Protein 5.2 L (6.3-8.2) g/dL Albumin 2.7 L (3.5-5.0) g/dL Urine Protein (Negative) Microbiology - Last 24 Hours (Table) 07/21/16 09:55 Group A Strep Throat Culture - Preliminary Throat 07/21/16 11:02 Urine Culture - Preliminary Urine,Voided Assessment and Plan Plan: 1. Neutropenic fever undergoing chemotherapy for breast cancer, patient was started on cefepime, and vancomycin, blood cultures have been sent, consult were made with Dr. Locke and Dr. Owens, urinalysis negative, chest x-ray is unremarkable, Neupogen most likely would be started by oncology 2. Ongoing chemotherapy for breast cancer 3. Stage III breast cancer left side status post lumpectomy April 2016, follows closely by Dr. Casas 4. Depression on Lexapro 10 mg daily 5. Right mucosal shallow ulcerations, most likely secondary to localized mucositis, Davis's solution to be applied 6. GI prophylaxis bother was core of 4, Lovenox 40 mg daily, patient currently has a platelet count of 69 monitor platelets 7. GI prophylaxis with IV Protonix Discharge plan: Return home Impression and plan of care have been directed as dictated by the signing physician. Joyce Feliciano nurse practitioner acting as scribe for signing physician.
--- NOTE | 2016-07-22 13:32 | CONS ---
DATE OF CONSULTATION: DATE OF SERVICE: 07/22/2016 REASON FOR CONSULTATION: Febrile neutropenia. HISTORY OF PRESENT ILLNESS: The patient is a 61-year-old female with a past medical history significant for breast cancer diagnosed in April of 2016, stage III that did require lumpectomy at [facility]. The patient is currently getting chemotherapy here locally under Dr. Kelsey for which patient received 3 cycles on biweekly schedule. The patient has been complaining of sore throat that apparently started a few days then patient started having a low-grade fever of 100.8 to 100.4. The patient denies any difficulty swallowing. The patient denies having any other ( ) sore throat. No chest pain, shortness of breath or any cough. No abdominal pain and no diarrhea or any burning or frequency of urine. Patient subsequently presented to the ER where patient had been evaluated by the ER physician. The patient did have a chest x-ray that showed no acute abnormalities. On arrival to the ER, the patient did have a fever of 100.5, repeat was 100.4. Patient did have a white count of 0.4 on admission. It is up to 0.5 today. She did have UA that was negative. Group B strep was negative. The patient had blood cultures obtained. She has been started on cefepime and vancomycin. ID was consulted for further recommendations regarding antibiotic therapy. Patient is currently feeling better compared to yesterday and already thinking about going home. REVIEW OF SYSTEMS: CONSTITUTIONAL: Positive for weakness and a fever as mentioned above. EYES: No complaint. ENT: As per HPI. RESPIRATORY: No complaint. CARDIOVASCULAR: No complaint. GENITOURINARY: No complaints. GASTROINTESTINAL: No complaint. MUSCULOSKELETAL: No complaint. INTEGUMENTARY: No complaint. PSYCHOLOGICAL: No complaint. NEUROLOGICAL: No complaint. PAST MEDICAL HISTORY: Significant for left breast cancer, stage III. PAST SURGICAL HISTORY: section, left breast lumpectomy, lymph node removal. SOCIAL HISTORY: No history of smoking, drinking or drug use. She works as a teacher in high school. FAMILY HISTORY: Father with history of COPD and [place]. Mother with history osteoarthritis and osteoporosis. Allergies to PENICILLIN, however, tolerates ( ). Medication currently include the patient is on Tylenol, cefepime, Lexapro, vancomycin, Narcan. On examination, blood pressure is 92/57 with a pulse of 73, temperature 98.1, T-max is 100.5. She is 96% on room air. General description is a middle-age female up in the bed in no distress. No tachypnea or accessory muscles of respiration use. HEENT exam shows pallor. No scleral icterus. Oral mucous membrane is moist with superficial ulceration on the buccal mucosa and minimal pharyngeal erythema. No thrush. NECK: Trachea central. No thyromegaly. LUNGS: Unlabored breathing. Clear to auscultation anteriorly. No wheeze or crackle. HEART: S1, S2. Regular rate and rhythm. No added sounds. ABDOMEN: Soft. No tenderness. No guarding or rigidity. EXTREMITIES: No edema of the feet. SKIN EXAMINATION: No rash or mass palpable. NEUROLOGICAL: The patient is awake, alert, oriented x3. Mood and affect normal. LABS: Hemoglobin is 9, white count is 0.5 with a BUN of 9, creatinine 0.58. UA has been negative. Strep ( ) was negative. Blood cultures so far negative. Urine showing group B Streptococcus agalactiae. DIAGNOSTIC IMPRESSION AND PLAN: Patient with febrile neutropenia in the patient who did have a fever of 100.5 with a white count of 0.4, no diff to see how the neutrophil count itself were in a patient who is immunocompromised, getting chemo for her left breast cancer stage III with the only symptom currently is sore throat, some superficial aphthous ulcerations in the mouth, but no definite thrush. Group A strep swab has been negative and no other clinical focus of infection with chest x-ray being negative and abdomen is soft on clinical examination and UA has been negative. PLAN: 1. The patient to continue on cefepime 2 gram q.8 hours along with vancomycin pharmacy to dose while awaiting for the culture to finalize. 2. Depending upon the clinical response as well as recovery of her immune system and culture ( ) antibiotic. Thank you for this consultation. Will follow this patient along with you.
[2016-07-22] MEDS: SODIUM CHLORIDE 0.9% 1,000 ML IV SCH ×2 (13:38→22:18)
--- NOTE | 2016-07-22 17:15 | P.CONS ---
History of Present Illness - Reason for Consult Consult date: 07/22/16 on chemo Requesting physician: Joyce Feliciano - Chief Complaint febrile neutropenia, rigors - History of Present Illness Ms. Barlow is a very pleasant female pt of Dr. Kelsey diagnosed with metastatic breast cancer Mar 2016. Pt had abnormal left breast mammogram, US was done and confirmed suspicious lesion at 2 O'clock, core biopsy was positive for invasive carcinoma. 04/28/16 he had partial left mastectomy with sentinel and axillary node dissection. Path revealed grade 2, invasive ductal carcinoma , 2.5cm with 1 margin positive, 01/20 LN positive for mets, ER positive, GA and Her2 negative. Staging CT CAP and bone scan 05/13/16 were negative for metastatic disease so plan is for re-excision post adjuvant chemotherapy. Pt was started on dose dense adriamycin and cytoxan 06/13/16, she is s/p 3 cycles, last treatment was 8 days ago, due for final cycle next week, taxol to follow. Pt was not feeling well starting late last week, she contacted office yesterday with c/o uncontrollable shaking as well as fevers, she was instructed to come in the office for evaluation, CBC reveled absolute neutropenia with fever so she was directed to the ER for admission to the hospital for pancultures and IV antibiotics. She states feeling ok today, her mouth and throat are a little sore, nausea has subsided, no vomiting, she is tolerating oral intake, no SOB, cough, wheezing, abd pain, bloating, dysuria, she had diarrhea last week but none since, no bleeding, swelling or pain to report. Review of Systems All systems: negative Constitutional: Reports as per HPI Past Medical History Past Medical History: Cancer Additional Past Medical History / Comment(s): breast cancer History of Any Multi-Drug Resistant Organisms: None Reported Past Surgical History: Section, Orthopedic Surgery Additional Past Surgical History / Comment(s): lumpectomy left breast, lymph node removal Past Anesthesia/Blood Transfusion Reactions: Postoperative Nausea & Vomiting ( PONV) Past Psychological History: Depression Additional Psychological History / Comment(s): feels well maintained on meds. pt lives in 2 story home that has 6 proch steps and 12 steps to 2nd floor.pt is independant lives with her spouse. no pets.pt is a high school counselor.no outside services recieved. no medical equipment. Smoking Status: Never smoker Past Alcohol Use History: None Reported Past Drug Use History: None Reported - Past Family History Father Family Medical History: COPD, Myocardial Infarction (CO) Mother Family Medical History: Osteoarthritis (OA) (Osteoporosis) Additional Family Medical History / Comment(s): age 90 healthy has osteoporosis Brother(s) Family Medical History: No Reported History Sister(s) Family Medical History: No Reported History Daughter(s) Family Medical History: No Reported History Son(s) Family Medical History: No Reported History Medications and Allergies Home Medications Medication Instructions Recorded Confirmed Type Dexamethasone [Dexamethasone] 4 - 8 mg PO DIRECTED 07/21/16 07/21/16 History Escitalopram [Lexapro] 10 mg PO DAILY 07/21/16 07/21/16 History Lidocaine/Prilocaine 1 applic TOPICAL DIRECTED 07/21/16 07/21/16 History [Lidocaine-Prilocaine Cream] Allergies Allergy/AdvReac Type Severity Reaction Status Date / Time Penicillins Allergy Rash/Hives Verified 07/21/16 10:30 Physical Exam Vitals: Vital Signs Temp Pulse Pulse Resp BP BP BP 07/22/16 07:00 98.1 F 73 18 92/57 92/57 07/21/16 23:28 98.4 F 07/21/16 23:00 97.8 F 76 16 98/50 07/21/16 18:01 100.4 F H 73 19 106/58 07/21/16 16:35 70 18 100/53 07/21/16 15:35 70 18 96/50 07/21/16 13:51 99.2 F 67 18 94/52 07/21/16 13:29 98.7 F 70 18 88/53 07/21/16 12:12 99.3 F 68 20 97/56 07/21/16 10:57 67 18 104/57 07/21/16 09:53 100.5 F H 72 18 89/51 Pulse Ox 07/22/16 07:00 96 07/21/16 23:28 07/21/16 23:00 94 L 07/21/16 18:01 98 07/21/16 16:35 97 07/21/16 15:35 96 07/21/16 13:51 98 07/21/16 13:29 98 07/21/16 12:12 98 07/21/16 10:57 100 07/21/16 09:53 98 Intake and Output 07/21/16 07/22/16 07/22/16 22:59 06:59 14:59 Intake Total 1275 Balance 1275 Intake: IV 1275 Cefepime 2 gm In Sodium 100 Chloride 0.9% 50 ml @ 100 mls/hr IVPB Q8HR JEIMY Rx# :[id number] Sodium Chloride 0.9% 1, 925 000 ml @ 125 mls/hr IV . Q8H JEIMY Rx#:[id number] Vancomycin 1,000 mg In 250 Sodium Chloride 0.9% 250 ml @ 125 mls/hr IVPB Q8H JEIMY Rx#:[id number] Other: Voiding Method Toilet Toilet Weight 61.5 kg - Constitutional General appearance: average body habitus, cooperative, no acute distress - EENT Eyes: anicteric sclerae, EOMI, PERRLA, normal appearance ENT: hearing grossly normal, normal oropharynx - Neck Neck: no lymphadenopathy - Respiratory Respiratory: bilateral: CTA - Cardiovascular Heart sounds: normal: S1, S2 leg Peripheral Edema: bilateral: None - Gastrointestinal General gastrointestinal: no absent bowel sounds, no decreased bowel sounds, no distended, no hepatomegaly, no hyperactive bowel sounds, normal bowel sounds, no organomegaly, no rigid, no scaphoid, soft, no splenomegaly, no tenderness, no umbilical hernia, no ventral hernia - Integumentary Integumentary: normal - Neurologic Neurologic: CNII-XII intact - Musculoskeletal Musculoskeletal: strength equal bilaterally - Psychiatric Psychiatric: A&O x's 3, appropriate affect, intact judgment & insight Results CBC & Chem 7: 07/22/16 06:15 07/22/16 06:15 Labs: Abnormal Lab Results - Last 24 Hours (Table) 07/21/16 07/21/16 07/21/16 Range/Units 09:44 09:44 11:02 WBC 0.4 L* (3.8-10.6) k/uL RBC 3.38 L (3.80-5.40) m/uL Hgb 10.4 L (11.4-16.0) gm/dL Hct 30.4 L (34.0-46.0) % Plt Count 69 L (150-450) k/uL Sodium 134 L (137-145) mmol/L Chloride (98-107) mmol/L Glucose 164 H (74-99) mg/dL Calcium 8.3 L (8.4-10.2) mg/dL AST 12 L (14-36) U/L Total Protein 5.7 L (6.3-8.2) g/dL Albumin 3.1 L (3.5-5.0) g/dL Urine Protein Trace H (Negative) 07/22/16 07/22/16 Range/Units 06:15 06:15 WBC 0.5 L* (3.8-10.6) k/uL RBC 3.01 L (3.80-5.40) m/uL Hgb 9.0 L (11.4-16.0) gm/dL Hct 27.5 L (34.0-46.0) % Plt Count 48 L* (150-450) k/uL Sodium (137-145) mmol/L Chloride 109 H (98-107) mmol/L Glucose (74-99) mg/dL Calcium 8.2 L (8.4-10.2) mg/dL AST 11 L (14-36) U/L Total Protein 5.2 L (6.3-8.2) g/dL Albumin 2.7 L (3.5-5.0) g/dL Urine Protein (Negative) Microbiology - Last 24 Hours (Table) 07/21/16 09:55 Group A Strep Throat Culture - Preliminary Throat 07/21/16 11:02 Urine Culture - Preliminary Urine,Voided Chest x-ray: report reviewed Assessment and Plan (1) Antineoplastic chemotherapy induced pancytopenia Narrative/Plan: Pt anemic but no transfusion at this time Low plt but adequate, SCDs for DVT prophylaxis GCSF given 5 days ago, none to be administered at this time. CBC daily Status: Acute (2) Febrile neutropenia Narrative/Plan: Pancultures obtained, CXR no evicence of acute process, urine cutlure is positve , blood cultures pending. Empiric abc ordered. Status: Acute (3) Mucositis (ulcerative) due to antineoplastic therapy Narrative/Plan: Cools solution ordered Status: Acute
[2016-07-23] MEDS: CEFEPIME 2 GM in SODIUM CHLORIDE 0.9% 50 ML IVPB SCH ×3 (01:22→17:28)
[2016-07-23] MEDS ORDERED: VANCOMYCIN TROUGH DUE 1 EACH MISC MISCELLANE ONE (05:00)
[2016-07-23] MEDS: ACETAMINOPHEN TAB 325 MG TAB PO PRN ×2 (05:31→17:26)
[2016-07-23 05:32] LABS: CH 30.8; CHCM 34.8; HCT 27.2 % (34.0-46.0); HDW 2.32; HGB 9.2 gm/dL (11.4-16.0); MCH 30.1 pg (25.0-35.0); MCHC 33.8 g/dL (31.0-37.0); MCV 88.9 fL (80.0-100.0); Mean Platelet Volume 8.4; RBC 3.06 m/uL (3.80-5.40); RDW 14.9 % (11.5-15.5)
[2016-07-23 05:37] LABS: WBC 1.1 k/uL (3.8-10.6)
[2016-07-23 05:41] LABS: ALT 32 U/L (9-52); AST 11 U/L (14-36); Alkaline Phosphatase 59 U/L (38-126); Anion Gap 7 mmol/L; Blood Urea Nitrogen 10 mg/dL (7-17); Calcium 8.5 mg/dL (8.4-10.2); Carbon Dioxide 25 mmol/L (22-30); Chloride 106 mmol/L (98-107); Glucose 98 mg/dL (74-99); Non-African American GFR(MDRD) >60 (>60 ml/min/1.73 sqM); Potassium 4.1 mmol/L (3.5-5.1); Sodium 138 mmol/L (137-145); Total Bilirubin <0.1 mg/dL (0.2-1.3); Total Protein 5.2 g/dL (6.3-8.2)
[2016-07-23] MEDS: SODIUM CHLORIDE 0.9% 1,000 ML IV SCH ×2 (06:13→15:22)
[2016-07-23] MEDS: VANCOMYCIN 1,000 MG in SODIUM CHLORIDE 0.9% 250 ML IVPB SCH (06:18)
[2016-07-23] MEDS: MAG HYDROX/AL HYDROX/SIMETH 30 ML, LIDOCAINE VISCOUS 30 ML, diphenhydrAMINE ELIXIR 75 M... PO SCH ×8 (08:48→17:29)
[2016-07-23] MEDS: ESCITALOPRAM 10 MG TAB PO SCH (08:48)
[2016-07-23] MEDS ORDERED: VANCOMYCIN 1,250 MG in SODIUM CHLORIDE 0.9% 250 ML IVPB SCH (14:00)
--- NOTE | 2016-07-23 14:09 | P.DS ---
Providers Date of admission: 07/21/16 13:04 Expected date of discharge: 07/23/16 Attending physician: Lucille Mendoza Consults: 07/21/16 12:45 Consult Physician Routine Consulting Provider: Gabriel Owens Consult Reason/Comments: neutropenic fever Do you want consulting provider notified?: Yes Consult Physician Routine Consulting Provider: Stephanie Locke Consult Reason/Comments: neutropenic fever Do you want consulting provider notified?: Yes Primary care physician: Chet Cleaning [facility] Hospital Course: 61-year-old pleasant lady patient of Dr. Correa, she has underlying history of breast cancer diagnosed in April 2016 stage III left side, required lumpectomy of the left breast Dr kwok at [facility] followed locally by Dr. Casas for chemotherapy,. Patient received a completed 3 series of chemotherapy on a biweekly schedule, she still has 1 more session off the biweekly series and subsequent to that an 12 week program for weekly chemotherapy, chemotherapy agents currently are not known by the patient. Patient was seen by Dr. Casas today after an onset of fever, she has sore throat and some local mucositis in the right side of her cheek, she had been requested to emergency room for a WBC 0.4, differential currently pending and was subsequently admitted secondary to neutropenic fever, patient was started on cefepime and vancomycin and consult were made with Dr. Locke infectious disease Dr. Casas from oncology. Emergency room group a strep negative screen, urinalysis negative,, chest x-ray is unremarkable for any acute abnormalities, patient denies any nausea vomiting dysuria no diarrhea no rashes no recent foreign travels no recent history or remote history of drug resistance organism 07/22: White count is now 0.5 and platelet count is dropped to 48. Blood pressure remains on the low side and temperature max been 100.4. Fluid bolus of 500 mL given. Patient is asymptomatic and states her blood pressure usually runs on the lower side. She denies having any fever or chills. She has been ambulating in the hallway without lightheadedness or dizziness. Patient is continued on cefepime time and vancomycin. Consults with Dr. Owens and Dr. Locke appreciated. Patient is hoping to be discharged tomorrow but willing to stay until if necessary. 07/23: Repeat lab work reveals white count 1.1, hemoglobin 9.2 and platelet count of 50. Her temperature max was 100.2 yesterday afternoon. Patient is very anxious to be discharged. She will be sent home today if cleared by oncology. Dr. Locke has provided prescription for Augmentin for 7 days. Patient does have a prescription for Levaquin at home which she did not start which she has been instructed to hold. Patient will be discharged home today in stable condition. Discharge diagnoses: 1. Neutropenic fever undergoing chemotherapy for breast cancer 2. Ongoing chemotherapy for breast cancer 3. Stage III breast cancer left side status post lumpectomy April 2016, follows closely by Dr. Kelsey 4. Depression recurrent 5. Right mucosal shallow ulcerations, most likely secondary to localized mucositis Discharge plan: Return home Impression and plan of care have been directed as dictated by the signing physician. Joyce Feliciano nurse practitioner acting as scribe for signing physician. Cc: Dr. Chet Waldron Patient Condition at Discharge: Good Plan - Discharge Summary New Discharge Prescriptions: No Action Escitalopram [Lexapro] 10 mg PO DAILY Lidocaine/Prilocaine [Lidocaine-Prilocaine Cream] 1 applic TOPICAL DIRECTED Dexamethasone [Dexamethasone] 4 - 8 mg PO DIRECTED Discharge Medication List Dexamethasone [Dexamethasone] 4 - 8 mg PO DIRECTED 07/21/16 [History] Escitalopram [Lexapro] 10 mg PO DAILY 07/21/16 [History] Lidocaine/Prilocaine [Lidocaine-Prilocaine Cream] 1 applic TOPICAL DIRECTED 07/21/16 [History] Follow up Appointment(s)/Referral(s): Chet Waldron MD [Primary Care Provider] - 1 Week Stephanie Locke MD [STAFF PHYSICIAN] - 1 Week Danelle Kelsey MD [STAFF PHYSICIAN] - 1 Week Activity/Diet/Wound Care/Special Instructions: Take Augmentin instead of Levaquin at home as recommended by Dr. Locke. Discharge Disposition: HOME SELF-CARE
[2016-07-23 14:11] VITALS: BMI 18.9
--- NOTE | 2016-07-23 15:04 | PN ---
DATE OF SERVICE: 07/23/2016 Reason for followup is febrile neutropenia. INTERVAL HISTORY: The patient is afebrile. The patient overall is feeling better, breathing comfortably. Denies significant chest pain, shortness of breath or cough. No abdominal pain. Overall, sore throat has improved. On examination, blood pressure 103/60 with a pulse of 81, temperature 97.9. She is 98% on room air. General description is a middle-age female up in the bed, in no distress. RESPIRATORY SYSTEM: Unlabored breathing. Clear to auscultation. HEART: S1, S2, regular rate and rhythm. ABDOMEN: Soft. No tenderness. LABS: Hemoglobin 9.1, white count of 1.1 with a BUN of 10, creatinine 0.60. Cultures so far negative. Urine showing a group B strep. DIAGNOSTIC IMPRESSION AND PLAN: Patient with febrile neutropenia with no clear focus of infection. Patient has been insisting on going home today. She has been advised to stay in the hospital while awaiting for the culture to finalize. With overall insistence, patient will be electing discharge home on a combination of oral Augmentin and Levaquin for about 7 days with close outpatient followup, discussed with ( ), communicated to the nurse protector for the primary care.
[2016-07-23 15:54] VITALS: BP 106/67; PULSE 88; RESP 20; TEMP 97
== END 2016-07-23 19:27 | disposition home or self-care (01) | DRG 810 ==
LOC: EC 09:20 → 6SEL 13:04 → 5ONC 18:04
PROVIDERS: ADMIT Family Medicine; ATTEND Family Medicine
DX: D70.9 Neutropenia, unspecified (principal); K12.31 Oral mucositis (ulcerative) due to antineoplastic therapy; C50.912 Malignant neoplasm of unspecified site of left female breast; D61.810 Antineoplastic chemotherapy induced pancytopenia; R50.81 Fever presenting with conditions classified elsewhere; T45.1X5A Adverse effect of antineoplastic and immunosuppressive drugs, initial encounter; F32.9 Major depressive disorder, single episode, unspecified; Z79.899 Other long term (current) drug therapy
CPT/HCPCS: 36415; 71020; 80053; 80202; 81003; 83605; 85025; 85027; 85610; 85730; 87040; 87081; 87086; 87430; 93005; 96361; 96365; 96366; 96367; 99284

== ENCOUNTER → 2016-11-28 | Outpatient (CLI) | payer BC ==
--- NOTE | 2016-11-28 13:08 | BD ---
EXAMINATION TYPE: MG DEXA axial skeleton. DATE OF EXAM: 11/28/2016 COMPARISON: NONE CLINICAL HISTORY: Height: 63.5 IN Weight: 126 LBS FRAX RISK QUESTIONS: Alcohol (3 or more units per day): NO Family History (Parent hip fracture): NO Glucocorticoids (More than 3mos): NO (Ex: prednisone, prednisolone, methylprednisolone, dexamethasone, and hydrocortisone). History of Fracture in Adulthood: YES LEFT WRIST AGE 56 Secondary Osteoporosis: 1. Type 1 Diabetes: NO 2. Hyperthyroidism: NO 3. Menopause before 45: NO 4. Malnutrition: NO 5. Chronic liver disease: NO Rheumatoid Arthritis: NO Current Tobacco Use: NO RISK FACTORS HISTORY OF: History of Wrist Fracture: YES LEFT WRIST When: AGE 56 Surgery to Wrist (left): YES When: AGE 56 Family History of Osteoporosis: YES MOTHER AND SISTER Active: YES Postmenopausal woman: YES AGE 48 Take estrogen and/or progesterone medications: NOT NOW How long: AGE 48 - 61 MEDICATIONS: Additional Medications: CALCIUM, VIT D, LEXAPRO, Additional History: BREAST CANCER WITH CHEMO 2017 EXAM MEASUREMENTS: Bone mineral densitometry was performed using the [employer] System. Bone mineral density as measured about the Lumbar spine is: ----- L1-L4(G/cm2): 0.933 T Score Values are as follows: ----- L2: -2.2 ----- L3: -1.9 ----- L4: -2.4 ----- L1-L4: -2.1 Bone mineral density BASELINE Bone mineral density about the R hip (g/cm2): 0.639 Bone mineral density about the L hip (g/cm2): 0.601 T Score values are as follows: -----R Neck: -2.9 -----L Neck: -3.1 -----R Total: -2.7 -----L Total: -2.8 Bone mineral density BASELINE IMPRESSION: Osteoporosis (T Score less than -2.5) as noted by T Score values at the There is increased fracture risk and therapy is usually indicated based on age. Re-Screen 1-2 years. NOTE: T-SCORE=SD OF THE YOUNG ADULT MEAN.
== END | disposition home or self-care (01) ==
LOC: RADBDWWP 09:29
PROVIDERS: ATTEND Internal Medicine Hematology & Oncology
DX: M81.0 Age-related osteoporosis without current pathological fracture (principal); C50.412 Malignant neoplasm of upper-outer quadrant of left female breast; Z79.890 Hormone replacement therapy
CPT/HCPCS: 77080

== ENCOUNTER → 2024-03-07 | Outpatient (CLI) | payer MEDICARE ==
--- NOTE | 2024-03-15 11:16 | MM ---
Reason for Exam: Screening (asymptomatic). Last mammogram was performed 1 year(s) and 6 month(s) ago. Patient History: Menarche at age 11. First Full-Term at age 23. Postmenopausal. Patient has history of breast feeding. Breast cancer, left, age 61. Previous chest radiation therapy. Previous chemotherapy. Estrogen for 13 years from age 48 until age 61. Progesterone for 13 years from age 48 until age 61. 04/15/2016, Malignant Core Biopsy on the left side. Prior Study Comparison: 03/31/2016 Bilateral Screening Mammogram, [facility]. 04/08/2016 Left Diagnostic Mammogram, [facility]. 04/15/2016 Left Diagnostic Mammogram, [facility]. 08/29/2021 Bilateral Screening Mammogram, [facility]. 09/06/2022 Bilateral Screening Mammogram, [facility]. Tissue Density: The breasts are heterogeneously dense, which may obscure small masses. Findings: Analyzed By CAD. Posttreatment change to the upper outer aspect left breast is present. There are surgical clips along with large dystrophic calcification and distortion. There is no suspicious group of microcalcifications or new suspicious mass in either breast. Overall Assessment: Benign, BI-RAD 2 Management: Screening Mammogram of both breasts in 1 year. . Patient should continue monthly self-breast exams. A clinical breast exam by your physician is recommended on an annual basis. This exam should not preclude additional follow-up of suspicious palpable abnormalities. Note on Helene scores and lifetime risk: 1. A Helene score greater than 3% is considered moderate risk. If this is the case, consider specialist referral to assess eligibility for a risk reducing agent. 2. If overall lifetime risk for the development of breast cancer is 20% or higher, the patient may qualify for future screening with alternating mammogram and breast MRI. [facility], , 03/15/2024 11:13 AM. Electronically signed and approved by: Grant Antoine M.D.
== END | disposition home or self-care (01) ==
LOC: RADMAMWWP 13:47
PROVIDERS: ATTEND Obstetrics & Gynecology
DX: Z12.31 Encounter for screening mammogram for malignant neoplasm of breast (principal); Z78.0 Asymptomatic menopausal state; R92.333 Mammographic heterogeneous density, bilateral breasts; Z85.3 Personal history of malignant neoplasm of breast; R92.1 Mammographic calcification found on diagnostic imaging of breast
CPT/HCPCS: 77063; 77067

== ENCOUNTER → 2024-03-10 | Outpatient (CLI) | payer MEDICARE ==
--- NOTE | 2024-03-11 08:07 | BD ---
EXAMINATION TYPE: Axial Bone Density DATE OF EXAM: 03/10/2024 CLINICAL HISTORY: 68 years old Female. ICD-10 CODE: Z78.0 ASYMPTOMATIC [place] STATE , Additional Histo ry: Height: 63.5 Weight: 121.2 FRAX RISK QUESTIONS: Alcohol (3 or more units per day): no Family History (Parent hip fracture): yes Glucocorticoids (More than 3mos): no (Ex: prednisone, prednisolone, methylprednisolone, dexamethasone, and hydrocortisone). History of Fracture in Adulthood: yes Secondary Osteoporosis: 1. Type 1 Diabetes: no 2. Hyperthyroidism: no 3. Menopause before 45: no 4. Malnutrition: no 5. Chronic liver disease: no Rheumatoid Arthritis: no Current Tobacco Use: no RISK FACTORS HISTORY OF: History of Wrist Fracture: left When: 2012 Surgery to Spine/Hip(right/left)/Wrist (right/left): no EXAM MEASUREMENTS: Bone mineral densitometry was performed using the [employer] System. Bone mineral density as measured about the Lumbar spine is: ----- L1-L4(G/cm2): 1.011 T Score Values are as follows: ----- L1: -1.6 ----- L2: -1.9 ----- L3: -1.2 ----- L4: -1.1 ----- L1-L4: -1.4 Z Score Values are as follows: ----- L1: 0.4 ----- L2: 0.1 ----- L3: 0.8 ----- L4: 0.9 ----- L1-L4: 0.6 Bone mineral density has: increased 8.4 % since study of: 11.28.2016 Bone mineral density about the R hip (g/cm2): 0.686 Bone mineral density about the L hip (g/cm2): 0.653 T Score values are as follows: -----R Neck: -2.1 -----L Neck: -3.1 -----R Total: -2.6 -----L Total: -2.8 Z Score values are as follows: -----R Neck: -0.2 -----L Neck: -1.1 -----R Total: -.8 -----L Total: -1.1 Bone mineral density has: increased 1.1% since study of: 11.28.2016 FRAX%s: The graph provided illustrates a 27.6% chance for a major osteoporotic fx and a 10.1% chance for the hips probability for fx in 10 years time. IMPRESSION: Osteoporosis (T Score less than -2.5). There is increased fracture risk and therapy is usually indicated based on age. Re-Screen 1-2 years. NOTE: T-SCORE=SD OF THE YOUNG ADULT MEAN. [facility], , 03/11/2024 8:04 AM
== END | disposition home or self-care (01) ==
LOC: RADBDWWP 10:55
PROVIDERS: ATTEND Obstetrics & Gynecology
DX: M81.0 Age-related osteoporosis without current pathological fracture (principal); M85.89 Other specified disorders of bone density and structure, multiple sites; Z78.0 Asymptomatic menopausal state
CPT/HCPCS: 77080